=== PATIENT | male | born 2005 | race Caucasian/White ===

== ENCOUNTER 2025-03-04 13:38 | Emergency (ER) | payer OTHER, SELFPAY ==
--- OUTSIDE RECORDS SUMMARY | 2025-03-04 13:40 | XMS_ITS | Clinical Summary ---
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 Gender Identity Not on file Sexual Orientation Not on file Plan of Treatment Health Maintenance Due Date Last Done Comments Hepatitis C Virus (HCV) Screening 2003 Human Papillomavirus (HPV) Immunization (1 - Male 3-dose series) 12/18/2018 Meningococcal B Immunization (1 of 2 - Standard) 2019 Influenza Immunization (#1) 06/11/202407/13, 07/28/2018, 08/05/2017, Additional history exists SARS-COV-2 Immunization ( season) 2024 10/15/2021, 02/01/2021, 01/06/2021 Respiratory Syncytial Virus (RSV) Immunization (Adult) (1 - 1-dose 75+ series) 12/18/2078 Hepatitis B Immunization Completed 004, 06/27/2004, 04/25/2004, Additional history exists Pneumococcal Immunization Combined Aged Out 08/03/2005, 06/27/2004, 04/25/2004, Additional history exists No longer eligible based on patient's age to complete this topic Hepatitis A Immunization Discontinued 008, 04/04/2008, 02/09/2006 Measles Mumps Rubella (MMR) Immunization Discontinued 03/29/2009, 03/13/2005 Polio (IPV) Immunization Discontinued 009, 03/29/2009, 04/04/2008, Additional history exists Varicella Immunization Discontinued 03/29/2009, 2004 DTaP/Tdap/Td Immunization Discontinued 2014, 03/29/2009, 08/03/2005, Additional history exists Meningococcal Immunization (ACWY) Aged Out 05/09/2015 No longer eligible based on patient's age to complete this topic TdaP Immunization Completed 05/09/2015 Rotavirus Immunization Aged Out No lo nger eligible based on patient's age to complete this topic
[2025-03-04 13:46] VITALS: BP 119/64; PULSE 108; RESP 18; TEMP 37.4; O2SAT 97
--- NOTE | 2025-03-04 13:57 | ED_ITS ---
HPI - General Adult General Chief complaint: Upper Respiratory Infection Stated complaint: cough/sob/sore throat History of Present Illness HPI narrative: Cezar Silver is a 19-year-old male who presents today with complaints of having a cough, congestion and sore throat this has been going on for more 3-4 days. He states that he took Mucinex and Tylenol today for his symptoms. He denies any known fevers. He states it is painful to swallow Related Data Home Medications ?Medication ?Instructions ?Recorded ?Confirmed ?Last Taken ?Type methylphenidate HCl 5 mg/mL (25 10 mg PO DAILY 08/18/19 08/18/19 Unknown History mg/5 mL) oral susp,extended release 24 hr (Quillivant XR) estradiol 0.1 mg/24 hr semiweekly 03/04/25 Unknown History transdermal patch spironolactone 50 mg tablet mg 03/04/25 Unknown History Allergies Allergy/AdvReac Type Severity Reaction Status Date / Time No Known Allergies Allergy Verified 03/04/25 13:47 Review of Systems Review of Systems: All systems reviewed & are unremarkable except as noted in HPI and below Exam Narrative: GENERAL: Well-appearing, well-nourished, and in no acute distress. HEAD: Normocephalic, atraumatic. EYES: PERRLA and EOMI. ENT: Nares clear, no rhinorrhea or epistaxis. Mucous membranes moist. Oropharynx without tonsillar hypertrophy exudate or other lesions. +post nasal drip present in the back of his throat. Bilateral TMs pearly beatty nonbulging NECK: Supple. No adenopathy or masses. CHEST: Clear to auscultation. No respiratory distress. No wheezes rales or rhonchi HEART: Regular rate and rhythm. No murmur heard. Normal peripheral pulses.. EXTREMITIES: Normal range of motion. No edema. SKIN: Warm, dry, no rash. NEURO: No focal deficits. Alert and oriented x3. PSYCH: Normal mood and affect. Course Course Level of Care: Express Care Visit Vital Signs Vital signs: Vital Signs Temperature 37.4 C 03/04/25 13:46 Pulse Rate 108 H 03/04/25 13:46 Respiratory Rate 18 03/04/25 13:46 Blood Pressure 119/64 03/04/25 13:46 Pulse Oximetry 97 03/04/25 13:46 Oxygen Delivery Room Air 03/04/25 13:46 Temperature 37.4 C 03/04/25 13:46 Pulse Rate 108 H 03/04/25 13:46 Respiratory Rate 18 03/04/25 13:46 Blood Pressure 119/64 03/04/25 13:46 Pulse Oximetry 97 03/04/25 13:46 Oxygen Delivery Room Air 03/04/25 13:46 Medical Decision Making MDM Narrative Medical decision making narrative: This 19 year old patient presents with symptoms most suggestive of viral upper r espiratory tract infection. Lungs are clear bilaterally without any respiratory distress or accessory muscle use. 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 Return precautions were provided. Procedures: Pulse oximetry interpretation - not hypoxic. Review of medical records. DISPOSITION: Discharged home in stable condition. IMPRESSION: Acute upper respiratory tract infection, likely viral Medical Records Medical records reviewed: Yes I reviewed the external patient's medical records. Vital Signs Vital Signs: Vital Signs Temperature 37.4 C 03/04/25 13:46 Pulse Rate 108 H 03/04/25 13:46 Respiratory Rate 18 03/04/25 13:46 Blood Pressure 119/64 03/04/25 13:46 Pulse Oximetry 97 03/04/25 13:46 Oxygen Delivery Room Air 03/04/25 13:46 Temperature 37.4 C 03/04/25 13:46 Pulse Rate 108 H 03/04/25 13:46 Respiratory Rate 18 03/04/25 13:46 Blood Pressure 119/64 03/04/25 13:46 Pulse Oximetry 97 03/04/25 13:46 Oxygen Delivery Room Air 03/04/25 13:46 vitals reviewed Lab Data Lab results reviewed: Yes I reviewed the patient's lab results. Labs: Lab Results 03/04/25 Range/Units 14:05 POC Grp A Strep Screen Negative (Negative) Discharge Plan Discharge Clinical Impression: Upper respiratory infection Qualifiers: URI type: unspecified viral URI Qualified Code(s): J06.9 - Acute upper respiratory infection, unspecified Patient Disposition: Home Condition: Stable Instructions: Antibiotic Form, Upper Respiratory Infection (ED) Additional Instructions: Continue to take the Mucinex and zyrtec to help your symptoms Continue to take Tylenol and Motrin for body aches and fever You may try to get the over the counter lozenges to help your sore throat your strep test here was negative, however a culture was sent- if it comes back positive you will be notified Push hydration, staying hydrated wtih water and Gatorade Get plenty of rest Follow up with your PCP in 1 week to ensure you are improving IF you develop any worsening symptoms or have any other concerns the proceed to the ER Patient Language: Kazakh Prescriptions: No Action Quillivant XR 5 mg/mL (25 mg/5 mL) Suspension,Ext Rel 24hr,Recon 10 mg PO DAILY estradiol 0.1 mg/24 hr patch semiweekly spironolactone 50 mg tablet Follow-up/Referrals: Lamonte,MD Margarette [Primary Care Provider] - 1 Week Stand Alone Forms: Work/School Release IP Time of Disposition: 14:22
[2025-03-04] MEDS: IBUPROFEN 400 MG TABLET PO (14:03)
[2025-03-04 14:06] LABS: EDSTREPNEGPOS1 Negative (Negative)
[2025-03-04 14:22] LABS: EDCOVIDSCREEN Negative (Negative); EDINFLUASCREEN Negative (Negative); EDINFLUBSCREEN Negative (Negative)
== END 2025-03-04 14:26 | disposition home or self-care (01) ==
PROVIDERS: Emergency Provider Nurse Practitioner Family; PCP Pediatrics
DX: J06.9 Acute upper respiratory infection, unspecified (principal); Z20.822 Contact with and (suspected) exposure to COVID-19
CPT/HCPCS: 87081; 87426; 87804; 87880; 99213; A9270; G0463

== ENCOUNTER 2025-08-04 19:00 | Emergency (ER) | payer OTHER, SELFPAY ==
--- OUTSIDE RECORDS SUMMARY | 2025-08-04 19:02 | XMS_ITS | Clinical Summary ---
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
--- OUTSIDE RECORDS SUMMARY | 2025-08-04 19:02 | XMS_ITS | Clinical Summary ---
Author Organization [facility] Address [address] [place] [address] Care Team Providers Care Product Ambassador Name Role Phone Unavailable Primary Care Provider Unavailabl e Source Comments [facility],non-owned Affiliates and Associated Physician Practices is amultiple site organization consisting of ambulatory clinics and hospital sitesin [place], [place], [place] and [place]. This disclosure is being madepursuant to the Care Everywhere program and may not contain all information available regarding this patient. Last updated 18.[facility] Allergies No known active allergies Medications * Be aware that medications may not be up to date on this document. Alwaysverify current medications with the patient. cetirizine (ZYRTEC) 5 MG/5ML syrup Take 5 mL by mouth at bedtime. Active Melatonin 5 MG CHEW Take 5 mg by mouth once daily Active methylphenidate XR (QUILLIVANT XR) 25 MG/5ML suspensionIndicati ons:Attention deficit hyperactivity disorder (ADHD), unspecified ADHD type Take 12 mL by mouth once daily Please divide into two 180 ml bottles 360 mL 0 Active Active Problems Problem Noted Date Diagnosed Date Allergic rhinitis 01/18/2018 Overview (01/18/2018): 01/18/18 Zyrtec Well child visit 05/09/2015 Overview (01/18/2018): 9 yo 05/09/15 10 yo 07/09/16 11 yo No WCC 12 yo 01/18/18 ADD (attention deficit disorder) 05/09/2012 Overview (08/15/2019): 05/09/12 Adderall XR 5 mg, RTC 1 mo 06/07/12 Adderall XR 10 mg 06/21/12 Concerta 18 mg, RTC 1 mo 08/09/12 Concerta 18 mg, RTC 6 mo 12/12/12 Concerta 27 mg, RTC 1 mo (telephone increase) 02/08/13 Focalin XR 15 mg (telephone increase) 03/15/13 Concerta 27 mg 08/11/13 Concerta 36 mg (telephone increase) , RTC 1-2 mos 10/02/13 Vyvanse 20 mg, RTC 1-2 mos 11/14/13 Vyvanse 30 mg (telephone increase) - never filled 11/21/13 Daytrana 10 mg (ineffective) 12/14/13 Daytrana 20 mg (adverse reaction) 12/18/13 Metadate CD 10 mg 12/28/13 Metadate CD 20 mg, RTC 1 mo 02/05/14 Metadate CD 30 mg, RTC 1 mo Strattera 05/09/15 Quillivant XR 50 mg q am (Dr. Kenney) 07/09/17 Quillivant XR 50 mg q am, RTC 6 mos 01/04/17 Quillivant XR 60 mg q am, BP/wt check in 1 mo, RTC 3 mo 04/08/17 Quillivant XR 45 mg q am, RTC 6 mos 12/17/17 Quillichew XR 40 mg q am (liquid form on backorder, will not be available for months at least) 01/18/18 Quillichew XR 40 mg q am, RTC 6 mos 08/10/19 Quillivant suspension 60 mg po q am, RTC 6 mos Resolved Problems Problem Noted Date Diagnosed Date Resolved Date Acute sinusitis 04/20/2014 02/20/2015 Overview (04/22/2014): 04/20/14 ceftin Warts 02/05/2014 04/07/2017 Anxiety 03/15/2013 04/08/2017 Overview (03/20/2013): 03/17/13 Referred to psych Headache 09/25/2011 04/07/2017 Overview (08/18/2015): 09/25/11 Periactin 4 mg bid Abdominal pain 04/15/2010 04/07/2017 Fracture, femur, distal 01/12/201003/12 Overview (01/14/2010): [facility] - non-angulated transverse fracture of distal right femoral mataphysis, seeing [facility] 01/17/10 Otitis media, acute 10/08/2009 04/07/20 17 Overview (10/14/2009): 10/08/09 Bilateral (Zithromax) Closed head injury 10/08/2009 7 Immunizations Immunization Administration Dates Next Due INFLUENZA VACCINE, TRIV. (AF LURIA, FLUZONE TRIVALENT; 6MO+) (IIV3) 08/23/2009 DTAP/HEP B/IPV 06/27/2004,04/25/2004,02/18/2004 DTaP VACCINE IM (6wk-6yrs) 08/03/2005 HEP A PEDS 2 DOSE 04/04/2008,02/09/2006 HEP B VACCINE, PED/ADOL 06/27/2004,04/25,02/18/2004,12/18 HIB BOOSTER 06/27/2004,04/25/2004,02/18/2004 INFLUENZA A [id number] VACCINE 11/01/2009, 9 INFLUENZA VACCINE 09/29/2008, 7,09/27/2006,08/03,08/15/2004 INFLUENZA VACCINE, QUADR. (A FLURIA, FLUZONE QUADRIVALENT; 6MO+) (IIV4) 08/05/2017 INFLUENZA VACCINE, QUADR. (F LUZONE; FLULAVAL; FLUARIX; AFLURIA QUADRIVALENT; 6MO+), 0.5 ML (IIV4) 08/10/2019,07/28/2018,07/09/2016 Influenza Nasal 08/09/2012,09/18/2011 REYMUNDO VACCINE QUAD LAIV4 PF NASAL 07/23/2014,2012 MENINGOCOCCAL ACWY (MCV4P) VAC IM 05/09/2015 MMR 03/29/2009,03/13/2005 PNEUMOCOCCAL CONJ, PEDS 08/03/2005,06/27,04/25/2004,02/17 POLIO IPV 03/29/2009, 8,06/27/2004,04/25,02/18/2004 PPD 04/04/2008 TDAP (7yrs+) 05/09/2015 VARICELLA 03/29/2009,03/13/2005 Family History Medical History Relation Name Comments Hypercholesterolemia Father Other Paternal Grandmother Relation Name Status Comments Father Paternal Grandmother Social History Tobacco Use Types Packs/Day Years Used Date Smoking Tobacco: Never Smokeless Tobacco: Never Alcohol Use Standard Drinks/Week Comments No 0 (1 standard drink = 0.6 oz pur e alcohol) Sex and Gender Information Value Date Recorded Sex Assigned at Not on file 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 Gender Identity Not on file Sexual Orientation Not on file Last Filed Vital Signs Vital Sign Reading Time Taken Comments Blood Pressure 102/68 08/10/2019 4:44 PM CDT Pulse 82 06/24/2018 1:35 PM CDT Temperature 36.4 C (97.5 F) 08/10/2019 4:44 PM CDT Respiratory Rate - - Oxygen Saturation 100% 06/24/2018 1:35 PM CDT Inhaled Oxygen Concentration - - Weight 67.8 kg (149 lb 6.4 oz) 08/10/2019 4:44 P M CDT Height 180.3 cm (5' 11) 08/10/2019 4:44 PM CDT Body Mass Index 20.84 08/10/2019 4:44 PM CDT Plan of Treatment Health Maintenance Due Date Last Done Comments HIV SCREENING 12/18/2018 HPV VACCINE (1 - Male 3-dose series) 12/18/2018 MENINGOCOCCAL (Group B) VACCINE SHARED DECISION-MAKING (1 of 2 - Standard) 2019 HEPATITIS C SCREENING 12/14/2021 DEPRESSION SCREENING 10/11/2024 DTAP/TDAP/TD VACCINES (6 - Td or Tdap) 05/09/2025 05/09/2015, 08/03/2005, 06/27/2004, Additional history exists COVID-19 VACCINE (1 - season) 2025 INFLUENZA VACCINE (#1) 2025 9, 07/28/2018, 08/05/2017, Additional history exists ZOSTER VACCINE (1 of 2) 12/18/2053 HEPATITIS B VACCINE Completed 06/27/2004, 06/27/2004, 04/25/2004, Additional history exists HIB VACCINE Aged Out 06/27/2004, 04/10, 02/18/2004 No longer eligible based on patient's age to complete this topic PNEUMOCOCCAL VACCINE Completed 08/03/2005, 06/27/2004, 04/25/2004, Additional history exists MENINGOCOCCAL GROUPS A/C/Y/W VACCINE Aged Out 05/09/2015 No longer eligible based on patient's age to complete this topic Goals Goal Patient Goal Type Associated Problems Recent Progress Patient-Stated? Author Use safety retraint in car Lifestyle On track(2018 4:44 PM CDT) No Ramonita Pickens MA Take recommended medication(s) Lifestyle On track(2018 4:44 PM CDT) No Tom Pearl MD Insurance [facility]
--- OUTSIDE RECORDS SUMMARY | 2025-08-04 19:02 | XMS_ITS | Encounter Summary ---
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 Historical Provider NURSING COMMUNICATION Fin al Result documented in this encounter Visit Diagnoses Not on filedocumented in this encounter Care Teams Lead Customer Service Representative Relationship Specialty Start Date End Date Tom Pearl MD PCP - General 02/26/19 documented as of this encounter
--- OUTSIDE RECORDS SUMMARY | 2025-08-04 19:02 | XMS_ITS | Clinical Summary ---
Author Organization [facility] Address [address] [place] [address] Care Team Providers Care Curtain Stitcher Name Role Phone Unavailable Primary Care Provider Unavailabl e Social History Tobacco Use Types Packs/Day Years Used Date Smoking Tobacco: Never Assessed Sex and Gender Information Value Date Recorded Sex Assigned at Not on file Legal Sex Male 7:05 PM CDT Gender Identity Not on file Sexual Orientation Not on file Plan of Treatment Health Maintenance Due Date Last Done Comments Annual Physical 12/18/2006 HPV Vaccines (1 - Male 3-dos e series) 12/18/2018 Meningococcal B Vaccine (1 o f 2 - Standard) 2019 Hepatitis C 12/18/2021 DTaP, Tdap and Td Vaccines ( 1 - Tdap) 12/18/2022 Hepatitis B Vaccines (1 of 3 - 19+ 3-dose series) 12/18/2022 COVID-19 Vaccine (1 - 2024-2 6 season) 2025 Influenza Adult (#1) 2025 Hepatitis A Vaccines Aged Out No long er eligible based on patient's age to complete this topic Meningococcal Vaccine Aged Out No marilin sony eligible based on patient's age to complete this topic Pneumococcal Vaccine: Pediat rics (0 to 5 Years) and At-Risk Patients (6 to 49 Years) Aged Out No longer eligible b ased on patient's age to complete this topic RSV Immunizations Under 20 Months Aged Out No longer eligible based on patient's age to complete this topic
--- OUTSIDE RECORDS SUMMARY | 2025-08-04 19:02 | XMS_ITS | Clinical Summary ---
Author Organization [place] [id number] [facility] Address [address] [place] [address] Care Team Providers Care Animation Camera Operator Name Role Phone Tom Pearl MD Primary Care Provider Allergies No known active allergies Medications estradioL (VIVELLE-DOT) 0.1 mg/24 hr APPLY 1 PATCH TOPICALLY TO THE SKIN 2 TIMES A WEEK. REPLACE PATCH EVERY 3-4 DAYS 5 Active spironolactone (ALDACTONE) 50 mg tablet 5 Active cetirizine (ZyrTEC) 1 mg/mL syrup Take 5 mL (5 mg total) by mouth nightly Active melatonin 5 mg tablet,chewable Take 5 mg by mouth daily Active methylphenidate HCl (QUILLIVANT XR ORAL) Take 60 mg by mouth daily 0 Active meloxicam (MOBIC) 15 mg tablet Take 1 tablet (15 mg total) by mouth daily Take 1 daily with food 30 tablet 5 Active Active Problems Problem Noted Date Diagnosed Date Allergic rhinitis 01/18/2018 Overview (04/24/2025): 01/18/18 Zyrtec Chronic otitis media with effusion, right 2016 ADD (attention deficit disorder) 05/09/2012 Overview (04/24/2025): 05/09/12 Adderall XR 5 mg, RTC 1 [...] mg po q am, RTC 6 mos Surgical History Surgery Date Site/Laterality Comments TYMPANOSTOMY TUBE PLACEMENT 01/09/2005 - 02/07/2005 Medical History Medical History Date Comments ADHD (attention deficit hyperactivity disorder) Family History Medical History Relation Name Comments Arthritis Mother Relation Name Status Comments Mother Social History Tobacco Use Types Packs/Day Years Used Date Smoking Tobacco: Never Tobacco Cessation:Counseling Given: Not Answered Sex and Gender Information Value Date Recorded Sex Assigned at Not on file 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 Gender Identity Not on file Sexual Orientation Not on file Obstetrics History Last Filed Vital Signs Vital Sign Reading Time Taken Comments Blood Pressure 119/70 10/31/2019 11:05 AM SENIOR COST ANALYST Pulse 69 10/31/2019 11:05 AM SENIOR COST ANALYST Temperature 36.4 C (97.6 F) 10/31/2019 11:05 AM SENIOR COST ANALYST Respiratory Rate - - Oxygen Saturation 97% 10/31/2019 11:05 AM SENIOR COST ANALYST Inhaled Oxygen Concentration - - Weight 90.7 kg (200 lb) 04/24/2025 1:22 PM CDT Height 185.4 cm (6' 1) 04/24/2025 1:22 PM CDT Body Mass Index 26.39 04/24/2025 1:22 PM CDT Plan of Treatment Health Maintenance Due Date Last Done Comments Depression Screening 2003 Hepatitis C Screening 2003 HPV Vaccines (1 - Male 3-dose series) 12/18/2018 Meningococcal B Vaccine (1 of 2 - Standard) 2019 Regular Well Visit/Exam 18-64 12/18/2021 DTaP/Tdap/Td Vaccine (7 - Td or Tdap) 05/09/2025 05/09/2015, 03/29/2009, 08/03/2005, Additional history exists Influenza Vaccine (#1) 2025 , 07/18/2022, 08/10/2019, Additional history exists Hepatitis B Screening Completed 06/27/2004 , 06/27/2004, 04/25/2004, Additional history exists Pneumococcal vaccine <65 Completed 005, 06/27/2004, 04/25/2004, Additional history exists Varicella Vaccines Completed 03/29/2009, 03/13/2005 Meningococcal Vaccine Aged Out 05/09/2015 No marilin sony eligible based on patient's age to complete this topic Covid-19 Vaccine Completed 10/06/2024, 05/2022, 10/15/2021, Additional history exists [facility] Care Teams Animation Camera Operator Relationship Specialty Start Date End Date Tom Pearl MD PCP - General 02/26/19
[2025-08-04 19:08] VITALS: BP 124/68; PULSE 114; RESP 18; TEMP 37.3; O2SAT 97
--- NOTE | 2025-08-04 19:15 | ED.URI ---
HPI - URI/Sore Throat General Chief Complaint: Upper Respiratory Infection Stated Complaint: fever patient presents to the [facility] with complaints of headache, fever, chills, body aches, nausea, and fatigue that began about 3 days ago. Patient also reports minimal cough and sore throat. Patient reports taking Tylenol, ibuprofen, and NyQuil. No known sick contacts. Denies shortness of breath, wheezing, ear pain, difficulty swallowing, dizziness, abdominal pain, diarrhea. Related Data Home Medications ?Medication ?Instructions ?Recorded ?Confirmed ?Last Taken ?Type methylphenidate HCl 5 mg/mL (25 10 mg PO DAILY 08/18/19 08/18/19 Unknown History mg/5 mL) oral susp,extended release 24 hr (Quillivant XR) estradiol 0.1 mg/24 hr semiweekly 03/04/25 Unknown History transdermal patch spironolactone 50 mg tablet mg 03/04/25 Unknown History Allergies Allergy/AdvReac Type Severity Reaction Status Date / Time No Known Allergies Allergy Verified 08/04/25 19:08 Review of Systems Constitutional: Constitutional: Reports as per HPI, Reports chills, Reports fatigue and Reports fever(s) Eyes: Eyes: Reports no additional eye complaints ENT: Reports as per HPI, Denies vertigo, Denies dizziness, Denies nasal congestion and Reports sore throat Cardiovascular: Cardiovascular: Reports no additional cardiovascular complaints Respiratory: Respiratory: Reports as per HPI, Denies chest congestion, Reports cough, Denies dyspnea and Denies wheezing Gastrointestinal: Gastrointestinal: Reports as per HPI, Denies abdominal pain, Denies diarrhea, Reports nausea and Denies vomiting Genitourinary: Genitourinary: Reports no additional male genitourinary complaints Musculoskeletal: Musculoskeletal: Reports as per HPI, Denies back pain and Denies myalgias Integumentary/Breasts: Skin/Breast: Reports as per HPI and Denies rash Neurologic: Reports as per HPI, Denies vertigo, Denies dizziness, Reports headache(s) and Denies weakness Psychiatric: Psychiatric: Reports no additional psychiatric complaints Endocrine: Endocrine: Reports no additional endocrine complaints Hematologic/Lymphatic: Hematologic/Lymphatic: Reports no additional hematologic/lymphatic complaints Allergic/Immunologic: Allergic/Immunologic: Reports no additional allergic/immunologic complaints Exam Const: General: healthy appearing and no acute distress Nutritional Appearance: well nourished Orientation/consciousness: patient oriented x3 Limitations: no limitations HENMT: Head: normal to inspection Ears: external ears normal and TM's normal bilaterally Face/Nose/Sinus: Normal external nose present and Normal nares present Face and sinus: normal facial exam and sinuses nontender Mouth: Yes Normal oral and palatal mucosa present, Yes lip normal and Yes moist mucous membranes Throat: posterior oropharynx abnormal ( Minimal erythema with minimal edema, no exudate) Neck: Neck: normal visual inspection and no lymphadenopathy Resp: Effort & Inspection: normal respiratory effort Auscultation: clear to auscultation bilaterally Cardio: Rate: tachycardic Rhythm: regular rhythm Skin: General skin exam: normal color Rashes: no rashes Wounds: no wounds Neuro: General: patient oriented x3 and moves all extremities Speech: normal speech Gait exam (Neuro): Normal gait present Psych: Mental Status: mental status grossly normal Affect: normal affect Attitude: cooperative Course Course Level of Care: Express Care Visit Vital Signs Vital signs: Vital Signs Temperature 99.1 F 08/04/25 19:08 Pulse Rate 114 H 08/04/25 19:08 Respiratory Rate 18 08/04/25 19:08 Blood Pressure 124/68 08/04/25 19:08 Pulse Oximetry 97 08/04/25 19:08 Oxygen Delivery Room Air 08/04/25 19:08 Temperature 99.1 F 08/04/25 19:08 Pulse Rate 114 H 08/04/25 19:08 Respiratory Rate 18 08/04/25 19:08 Blood Pressure 124/68 08/04/25 19:08 Pulse Oximetry 97 08/04/25 19:08 Oxygen Delivery Room Air 08/04/25 19:08 MDM - URI/Sore Throat MDM Narrative Medical decision making narrative: strep, flu, COVID testing completed in Express Care The patient was evaluated by myself in the [facility] care. History is obtained from patient who is an independent historian and physical exam was performed. Available medical records were reviewed at this time. Exam findings show no acute concerns or changes; patient is non-toxic appearing and is in no distress. Patient is appropriate for outpatient treatment and follow-up. I have evaluated and discussed social determinants of health with the patient that could potentially impact subsequent diagnosis and treatment plans. Differential diagnosis and treatment plan were discussed with the patient. Patient agrees with discussion and after shared medical decision making agrees with plan of care. All questions were answered to the patient's satisfaction. Differential Diagnosis Differential diagnosis: Likely upper respiratory infection, croup, otitis media, sinusitis, viral infection, bronchitis, influenza and pharyngitis Medical Records Attestation: I reviewed the patient's medical records. Lab Data Attestation: I reviewed the patient's lab results. Labs: Lab Results 08/04/25 08/04/25 Range/Units 19:23 19:30 POC Influenza A Ag Pending POC Influenza B Ag Pending POC SARS CoV-2 Ag Pending POC Grp A Strep Screen Negative (Negative) Discharge Plan Discharge Clinical Impression: Fever, Nausea, Viral illness Patient Disposition: Home Condition: Stable Instructions: Antibiotic Form, Fever in Adults (ED), Viral Syndrome (ED) Additional Instructions: Viral illness may last between 7-12days; antibiotic is NOT recommended at this time. Recommend antihistamine such as Benadryl at night time and Claritin/Zyrtec/Belgica during the day. Also using steroid nasal spray like Flonase can help with symptoms and congestion. Using sudafed for significant congestion will also give some relief. Cough syrup may cause drowsiness; avoid driving or take it at night time. Use inhaler as needed for cough, wheezing, shortness of breath or chest tightness. Also, recommend symptomatic treatment includes: rest, fluids, increase humidity of the air at home. Recommend Acetaminophen or nonsteroidal anti-inflammatory agents(NSAIDs) as directed in the bottle to reduce fever and/pain/headache. Avoid smoking/second-hand smoke. Limit visits to areas with large crowds. Frequent hand washing or hand designer is one of the best ways to prevent spread of infection. Please schedule a followup visit with your personal physician for further evaluation and treatment within 3-5days. Including recheck and discussion of your blood pressure. If your symptoms persist, change or worsen significantly before you can contact your personal physician then please, without delay, go to the emergency department for further evaluation. Patient Language: Sammarinese Prescriptions: New ondansetron 4 mg tablet,disintegrating 4 mg PO Q8H PRN (Reason: nausea and vomiting) Qty: 20 0RF No Action Quillivant XR 5 mg/mL (25 mg/5 mL) Suspension,Ext Rel 24hr,Recon 10 mg PO DAILY estradiol 0.1 mg/24 hr patch semiweekly spironolactone 50 mg tablet Follow-up/Referrals: Lamonte,MD Margarette [Primary Care Provider, Unknown] Time of Disposition: 19:34
[2025-08-04 19:25] LABS: EDSTREPNEGPOS1 Negative (Negative)
[2025-08-04 19:32] LABS: EDCOVIDSCREEN Negative (Negative); EDINFLUASCREEN Negative (Negative); EDINFLUBSCREEN Negative (Negative)
[2025-08-04] MEDS: ONDANSETRON HCL ODT 4 MG TABLET PO (19:34)
== END 2025-08-04 19:38 | disposition home or self-care (01) ==
PROVIDERS: Emergency Provider Nurse Practitioner Family; PCP Pediatrics
DX: R11.0 Nausea (principal); B34.9 Viral infection, unspecified; Z20.822 Contact with and (suspected) exposure to COVID-19
CPT/HCPCS: 87081; 87426; 87804; 87880; 99213; A9270; G0463

== ENCOUNTER 2025-08-10 08:18 | Emergency (ER) | payer OTHER, SELFPAY ==
--- OUTSIDE RECORDS SUMMARY | 2025-08-10 08:28 | XMS_ITS | Clinical Summary ---
Author Organization [facility] Address [address] [place] [id number] Care Team Providers Care Telegraph Service Clerk Name Role Phone Unavailable Primary Care Provider [...]
--- OUTSIDE RECORDS SUMMARY | 2025-08-10 08:29 | XMS_ITS | Clinical Summary ---
Author Organization [place] [id number] Address [address] [place] [address] Care Team Providers Care Rental Agent Name Role Phone Tom Pearl MD Primary [...] mg po q am, RTC 6 mos Encounters Date Type Department Care Team Description 08/06/2025 11:45 PM CDT - 08/07/2025 5:33 AM CDT Emergency [facility] Emergency Department [address] [place] [address] Jacklyn Tesfaye MD Nausea and vomiting, unspecified vomiting type (Primary Dx); Abnormal LFTs; Acute nonintractable headache, unspecified headache type Discharge Disposition: Discharge to home or self care from Last 3 Months Surgical History Surgery Date Site/Laterality Comments TYMPANOSTOMY TUBE PLACEMENT 01/09/2005 - 02/07/2005 Medical History Medical History Date Comments ADHD (attention deficit hyperactivity disorder) Family History Medical History Relation Name Comments Arthritis Mother Relation Name Status Comments Mother Social History Tobacco Use Types Packs/Day Years Used Date Smoking Tobacco: Never Tobacco Cessation:Counseling Given: Not Answered Personal Safety Answer Date Recorded Have you ever been in or are you currently in a harmful physical or emotional relationship or is someone making you feel afraid or unsafe? 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 Gender Identity Not on file Sexual Orientation Not on file Obstetrics History Last Filed Vital Signs Vital Sign Reading Time Taken Comments Blood Pressure 120/81 08/07/2025 4:00 AM CDT Pulse 76 08/07/2025 4:15 AM CDT Temperature 37.2 C (99 F) 08/06/2025 9:40 PM CDT Respiratory Rate 22 08/07/2025 4:15 AM CDT Oxygen Saturation 98% 08/07/2025 4:15 AM CDT Inhaled Oxygen Concentration - - Weight 88.8 kg (195 lb 12.3 oz) 08/06/2025 9:40 PM CDT Height 185.4 cm (6' 1) 04/24/2025 1:22 PM CDT Body Mass Index 25.83 04/24/2025 1:22 PM CDT Plan of Treatment Health Maintenance Due Date Last Done Comments Depression Screening 2003 HPV Vaccines (1 - Male [...] Completed 10/06/2024, 05/2022, 10/15/2021, Additional history exists Hepatitis C Screening Completed 08/07/2025 Procedures Procedure Name Priority Date/Time Associated Diagnosis Comments CT ABDOMEN PELVIS W CONTRAST ED 08/07/2025 2:48 AM CDT MONONUCLEOSIS SCREEN STAT 08/07/2025 2:30 AM CDT SEPSIS LACTATE WITH REFLEX STAT 08/07/2025 2:30 AM CDT HEPATITIS PANEL, ACUTE STAT 2:30 AM CDT INFLUENZA A/B, RSV, AND COVID-19 PCR STAT 08/07/2025 2:30 AM CDT URINALYSIS, MICROSCOPIC ONLY STAT 08/06/2025 10:09 PM CDT URINALYSIS AND REFLEX TO MICROSCOPIC AND CULTURE STAT 08/06/2025 10:09 PM CDT CREATINE KINASE (CK), TOTAL STAT 08/06/2025 9:45 PM CDT EGFR STAT 08/06/2025 9:45 PM CDT DIFFERENTIAL AUTO STAT 08/06/2025 9:4 5 PM CDT LIPASE STAT 08/06/2025 9:45 PM CDT COMPREHENSIVE METABOLIC PANEL STAT 08/06/2025 9:45 PM CDT CBC WITH AUTO DIFFERENTIAL STAT 08/06/2025 9:45 PM CDT from Last 3 Months Results * CT Abdomen Pelvis W Contrast (08/07/2025 2:48 AM CDT) Anatomical Region Laterality Modality Body N/A Computed Tomogra phy 08/07/2025 2:56 AM CDT Impressions 08/07/2025 2:56 AM CDT No acute abnormality identified. Moderate hepatic steatosis and other chronic findings as above. Electronically signed by: Ian Hanley M.D. Narrative 08/07/2025 2:56 AM CDT EXAMINATION: CT ABDOMEN PELVIS W CONTRAST ORDERING HEALTHCARE PROVIDER: JACKLYN TESFAYE HISTORY: Abnormal LFTs. TECHNIQUE: CT abdomen and pelvis with contrast . Reconstructed coronal and sagittal MPR images reviewed. All images stored on PACS. Automated exposure control was used as a dose optimization technique for this examination. COMPARISON: None FINDINGS: Lung bases clear. Heart size normal. No effusion. Moderate hepatic steatosis. Gallbladder contracted. Spleen, pancreas, adrenal glands unremarkable. Kidneys, ureters, bladder appear normal. Stomach and small bowel appear normal. Noninflamed colonic diverticula. Normal appendix. Major vascular structures are patent and normal in caliber. No enlarged lymph nodes or free fluid is seen. Nondisplaced L5 pars defects. Osseous structures otherwise unremarkable. Moderate gynecomastia. Procedure Note Ian Hanley MD - 08/07/2025 EXAMINATION: CT ABDOMEN PELVIS W CONTRAST ORDERING HEALTHCARE PROVIDER: JACKLYN TESFAYE HISTORY: Abnormal LFTs. TECHNIQUE: CT abdomen and pelvis with contrast . Reconstructed coronal and sagittal MPR images reviewed. All images stored on PACS. Automated exposure control was used as a dose optimization technique for this examination. COMPARISON: None FINDINGS: Lung bases clear. Heart size normal. No effusion. Moderate hepatic steatosis. Gallbladder contracted. Spleen, pancreas, adrenal glands unremarkable. Kidneys, ureters, bladder appear normal. Stomach and small bowel appear normal. Noninflamed colonic diverticula. Normal appendix. Major vascular structures are patent and normal in caliber. No enlarged lymph nodes or free fluid is seen. Nondisplaced L5 pars defects. Osseous structures otherwise unremarkable. Moderate gynecomastia. IMPRESSION: No acute abnormality identified. Moderate hepatic steatosis and other chronic findings as above. Electronically signed by: Ian Hanley M.D. Jacklyn Tesfaye MD IM CT PROCEDURES Final Result * Influenza A/B, RSV, and COVID-19 PCR Nasopharyngeal (08/07/2025 2:30 AM CDT) COVID-19 RNA Negative Negative Comment:Testing performed by : [address] [address] Influenza A RNA Negative Negative TIERA Comment:Testing performed by : [address] [address] Influenza B RNA Negative Negative [facility]A Comment:Testing performed by : [address] [facility] Comment: Interpretive data: Testing performed by [facility]. This test is performed using the [employer] Xpert Xpress CoV-2/Flu/RSV plus assay. This is a multiplex, real-time reverse transcriptase PCR assay intended for the qualitative detection of nucleic acid from SARS-CoV-2, influenza A, influenza B, and respiratory syncytial virus. This assay has been cleared by the [place] Food and Drug administration. The performance characteristics have been verified by the [facility]. Results must be considered in the clinical context, and a negative result does not rule out infection. Interpretive Data last revised 2023 Testing performed by: [address] [address] Nasopharyngeal 08/07/2025 2: 30 AM CDT 08/07/2025 2:35 AM CDT Narrative TIERA - 08/07/2025 3:29 AM CDT Is the Patient experiencing symptoms consistent with COVID?->Unknown us Jacklyn Tesfaye MD LAB MICROBIOLOGY - GENER AL ORDERABLES Final Result [facility] [address] [facility] Department [place] [address] * Sepsis Lactate w/ Reflex (08/07/2025 2:30 AM CDT) Sepsis Lactate 0.9 0.7 - 2.0 mmol/L Comment:Testing performed by : [address] [address] Blood 08/07/2025 2:30 AM CDT 08/07/2025 2:34 AM CDT Jacklyn Tesfaye MD LAB BLOOD ORDERABLES Fin al Result Performing Organization Address City/[facility]/ZIP Co de Phone Number TIERA [facility] [place] [address] * Hepatitis panel, acute Blood (08/07/2025 2:30 AM CDT) Hep A IgM Nonreactive Nonreactive Comment: Interpretive Data: If Hep A IgM Ab is reported as Equivocal, a new sample should be drawn in two weeks for testing. Current interpretive data was last revised on 19. Hep B core IgM Nonreactive Nonreactive [facility] Comment: Interpretive Data If HepB Core IgM Ab is reported as Equivocal, a new sample should be drawn in two weeks for testing. Current interpretive data was last revised on 19. Hep C Ab Nonreactive Nonreactive [facility] Comment: Antibodies to HCV not detected. Does NOT exclude the possibility of recent exposure to HCV. Current interpretive data was last revised on 22 Interpretive Data Nonreactive: Antibodies to HCV not detected. Does NOT exclude the possibility of recent exposure to HCV. Equivocal: Equivocal for HCV antibodies. Supplemental molecular testing will be automatically performed to determine infection status in accordance with current CDC screening recommendations. Reactive: Positive for HCV antibodies. This may represent current or past HCV infection. Supplemental molecular testing will be automatically performed to determine current infection status in accordance with current CDC screening recommendations. Interpretive data was last revised on 2019. HepBsAg Nonreactive Nonreactive [facility] Blood 08/07/2025 2:30 AM CDT 08/07/2025 4:22 AM CDT Jacklyn Tesfaye MD LAB MICROBIOLOGY - GENER AL ORDERABLES Final Result Performing Organization Address City/[facility] Co de Phone Number TIERA [address] [facility] [place] [address] * Mononucleosis screen (08/07/2025 2:30 AM CDT) [place] Screen Negative Negative Comment: Interpretive Data Heterophile antibodies are short-lived. Therefore, a positive test is consistent with recent infection. Heterophile antibodies fail to develop in approximately 15% of adults and in a higher percentage of children. Chip-Martinez virus specific serology (IgG and IgM) testing should be performed to exclude disease in patients with a negative antibody test. Current interpretive data was last revised on 2023. Testing performed by: [address] [address] Blood 08/07/2025 2:30 AM CDT 08/07/2025 2:34 AM CDT us Jacklyn Tesfaye MD LAB BLOOD ORDERABLES Fin al Result [facility] [address] [facility] Department [place] [address] * (ABNORMAL) Urinalysis reflex to microscopic and culture Urine (08/06/2025 10:09 PM CDT) Color, ur Yellow Yellow Comment:Testing performed by : [address] [address] Clarity, ur Cloudy(A) Clear TIERA Comment:Testing performed by : [address] [address] Specific gravity, ur 1.029 1.003 - 1.030 [facility]A Comment:Testing performed by : [address] [address] pH, urine 6.5 [facility]A Comment: Interpretive Data U rine pH is affected by diet, medications, systemic acid-base disturbances, and renal tubular function. pH may affect urinary stone formation. For example, urine pH below 6.0 may help reduce the tendency for calcium phosphate stones and pH greater than 6.0 may reduce the tendency for uric acid stone formation. Source: [employer] Current Interpretive Data was last revised on 2017 Testing performed by: [address] [address] Protein, ur ql 1+(A) Negative TIERA Comment:Testing performed by : [address] [address] Glucose, ur ql Negative Negative TIERA Comment:Testing performed by : [facility], [address] [place] [address], [place]., [address] Ketones, ur Trace(A) Negative TIERA RICH Comment:Testing performed by : [address], [place]., [address] Bilirubin, ur 2+(A) Negative TIERA RICH Comment:Testing performed by : [address], [place]., [address] Blood, ur Negative Negative TIERA Comment:Testing performed by : [address], [place]., [address] Urobilinogen, ur >=8.0(A) <2.0 mg/dL TIERA RICH Comment:Testing performed by : [address], [place]., [address] Nitrite, ur Negative Negative TIERA Comment:Testing performed by : [address], [place]., [address] Leukocyte esterase, ur Negative Negative TIERA Comment:Testing performed by : [address], [place]., [address] UA reflex comment Reflex to microscopic UA will be performed. TIERA Comment:Testing performed by : [address] [address] Urine 08/06/2025 10:0 9 PM CDT 08/06/2025 10:12 PM CDT us Jacklyn Tesfaye MD LAB MICROBIOLOGY - GENER AL ORDERABLES Final Result [facility] [address] [facility] Department [place] [address] * (ABNORMAL) Urinalysis, microscopic only (08/06/2025 10:09 PM CDT) WBC, ur 0-5 0 - 5 /HPF Comment:Testing performed by : [address], [place]., [address] RBC, ur 0-2 0 - 2 /HPF TIERA RICH Comment:Testing performed by : [address], [place]., [address] Epithelial cells, squamous, ur >50(A) 0 - 5 /HPF TIERA Comment:Testing performed by : [address] [address] Mucous, ur Present(A) TIERA RICH Comment:Testing performed by : [address] [address] Culture Reflex Comment Reflex conditions for urine culture (WBC >10) not met. TIERA Comment:Testing performed by : [address] [address] Urine 08/06/2025 10:0 9 PM CDT 08/06/2025 10:12 PM CDT us Jacklyn Tesfaye MD LAB URINE ORDERABLES Fin al Result TIERA [facility] Department [place] [address] * eGFR (08/06/2025 9:45 PM CDT) eGFR >90 >=60 mL/min/1. 73 m2 Comment: Interpretive Data Reference Interval Normal >/= 90 mL/min/1.73m2 Mildly decreased* 60 - 89 mL/min/1.73m2 Mildly to moderately decreased 45 - 59 mL/min/1.73m2 Moderately to severely decreased 30 - 44 mL/min/1.73m2 Severely decreased 15 - 29 mL/min/1.73m2 Kidney Failure < 15 mL/min/1.73m2 *Relative to young adult level Estimated glomerular filtration rate is determined by the 2020 CKD-EPI equation recommended by the National Kidney Foundation (A Unifying Approach to GFR Estimation: Recommendations of the NKF-ASK Task Force on Reassessing the Inclusion of Race in Diagnosing Kidney Disease, JASN 202). The CKD-EPI equation should not be used for patients with unstable renal function and has not been validated in children and those over 70. Current interpretive data was last reviewed 2021. Testing performed by: [address] [address] Blood 08/06/2025 9:45 PM CDT 08/06/2025 10:05 PM CDT us Jacklyn Tesfaye MD LAB BLOOD ORDERABLES Fin al Result [facility]ERA [address] [facility] Department [place] [address] * (ABNORMAL) Differential, auto (08/06/2025 9:45 PM CDT) Neutrophil abs 2.11 1.50 - 6.50 K/cumm Comment:Testing performed by : [address] [address] Imm gran abs 0.02 0.00 - 0.10 K/cumm TIERA Comment:Testing performed by : [address] [address] Lymphocyte abs 4.99(H) 0.80 - 3.30 K/cumm TIERA Comment:Testing performed by : [address] [address] Monocyte abs 0.37 0.20 - 0.80 K/cumm TIERA Comment:Testing performed by : [address] [address] Eosinophil abs 0.01 0.00 - 0.50 K/cumm TIERA Comment:Testing performed by : [address] [address] Basophil abs 0.10 0.00 - 0.10 K/cumm TIERA Comment:Testing performed by : [address] [address] Neutrophil pct 27.7 % TIERA Comment: Interpretive Data Percent cell count reference ranges are not reported, since discordance with absolute values may lead to misinterpretation of CBC data. Current Interpretive Data was last revised on 2018. Testing performed by: [address] [address] Imm gran pct 0.3 % TIERA Comment: Interpretive Data Percent cell count reference ranges are not reported, since discordance with absolute values may lead to misinterpretation of CBC data. Current Interpretive Data was last revised on 2018. Testing performed by: [address] [address] Lymphocyte pct 65.7 % [facility] Comment: Interpretive Data Percent cell count reference ranges are not reported, since discordance with absolute values may lead to misinterpretation of CBC data. Current Interpretive Data was last revised on 2018. Testing performed by: [address] [address] Monocyte pct 4.9 % [facility] Comment: Interpretive Data Percent cell count reference ranges are not reported, since discordance with absolute values may lead to misinterpretation of CBC data. Current Interpretive Data was last revised on 2018. Testing performed by: [address] [address] Eosinophil pct 0.1 % [facility] Comment: Interpretive Data Percent cell count reference ranges are not reported, since discordance with absolute values may lead to misinterpretation of CBC data. Current Interpretive Data was last revised on 2018. Testing performed by: [address] [address] Basophil pct 1.3 % [facility] Comment: Interpretive Data Percent cell count reference ranges are not reported, since discordance with absolute values may lead to misinterpretation of CBC data. Current Interpretive Data was last revised on 2018. Testing performed by: [address] [address] Blood 08/06/2025 9:45 PM CDT 08/06/2025 10:05 PM CDT us Jacklyn Tesfaye MD LAB BLOOD ORDERABLES Fin al Result [facility]ERA [address] [facility] Department [place] [address] * (ABNORMAL) CBC with auto differential (08/06/2025 9:45 PM CDT) WBC 7.60 3.80 - 9.90 K/cumm Comment:Testing performed by : [address] [place] [address] Hgb 12.4(L) 13.0 - 17.5 g/dL TIERA Comment:Testing performed by : [address], [address] Hct 34.8(L) 38.9 - 50.3 % TIERA MH Comment:Testing performed by : [address], [address] Plt 158 150 - 400 K/cumm TIERA Comment:Testing performed by : [address], [address] MPV 10.4 9.1 - 12.3 fL TIERA Comment:Testing performed by : [address], [address] RBC 4.32 4.30 - 5.80 M/cumm TIERA Comment:Testing performed by : [address], [address] MCV 80.6(L) 81.3 - 96.4 fL TIERA Comment:Testing performed by : [address], [address] MCH 28.7 27.1 - 33.3 pg TIERA Comment:Testing performed by : [address], [address] MCHC 35.6 32.3 - 35.7 g/dL TIERA Comment:Testing performed by : [address], [address] RDW CV 12.7 11.1 - 14.9 % TIERA Comment:Testing performed by : [address], [address] RDW SD 37.1 35.7 - 48.1 fL TIERA Comment:Testing performed by : [address], [address] NRBC abs 0.00 0.00 - 0.01 K/cumm TIERA Comment:Testing performed by : [address], [address] Morphologic Screen Results confirmed by manual morphology review. TIERA Comment:Testing performed by : [address] [address] Blood Venous blood specimen / Unknown 08/06/2025 9:45 PM CDT 08/06/2025 10:05 PM CDT Jacklyn Tesfaye MD LAB BLOOD ORDERABLES Fin al Result [address] [address] * Lipase (08/06/2025 9:45 PM CDT) Lipase 39 10 - 99 Units/L Comment:Testing performed by : [address] [address] Blood Venous blood specimen / Unknown 08/06/2025 9:45 PM CDT 08/06/2025 10:05 PM CDT Jacklyn Tesfaye MD LAB BLOOD ORDERABLES Fin al Result Performing Organization Address [facility]/ZIP Co de Phone Number [address] [place] [address] * Creatine kinase (CK), total (08/06/2025 9:45 PM CDT) CK 58 40 - 300 Units/L Comment:Testing performed by : [address] [address] Blood 08/06/2025 9:45 PM CDT 08/06/2025 10:05 PM CDT Jacklyn Tesfaye MD LAB BLOOD ORDERABLES Fin al Result [address] [address] * (ABNORMAL) Comprehensive metabolic panel (08/06/2025 9:45 PM CDT) Sodium 135 135 - 145 mmol/L Comment:Testing performed by : [address] [address] Potassium, pl 4.0 3.3 - 4.9 mmol/L TIERA Comment:Testing performed by : [address] [address] Chloride 100 97 - 110 mmol/L [facility] Comment:Testing performed by : [address], [place]., [address] CO2 23 22 - 32 mmol/L TIERA Comment:Testing performed by : [address], [place]., [address] Anion gap 12 2 - 15 mmol/L [facility] Comment:Testing performed by : [address], [place]., [address] BUN 11 6 - 25 mg/dL [facility] Comment:Testing performed by : [address], [place]., [address] Creatinine 0.81 0.80 - 1.30 mg/dL TIERA Comment:Testing performed by : [address] [address] Glucose 130 70 - 199 mg/dL [facility] Comment: Interpretive Data Fasting glucose >/= 126 mg/dl is diagnostic for diabetes. Fasting is defined as no caloric intake for at least 8 hours. Fasting glucose between 100 mg/dl to 125 mg/dl is diagnostic of prediabetes. In a patient with classic symptoms of hyperglycemia or hyperglycemic crisis, a random glucose >/= 200 mg/dl is diagnostic for diabetes. In the absence of unequivocal hyperglycemia, results should be confirmed by repeat testing. The classification and Diagnosis of Diabetes Diabetes Care 202; 46: S19-S40. Current interpretive data was last revised 2022. Testing performed by: [address] [address] Calcium 9.2 8.5 - 10.3 mg/dL TIERA Comment:Testing performed by : [address] [address] Bilirubin, total 3.0(H) 0.1 - 1.2 mg/dL [facility] Comment:Testing performed by : [address] [address] Protein, pl 7.2 6.5 - 8.5 g/dL TIERA Comment:Testing performed by : [address] [address] Albumin 4.1 3.5 - 5.0 g/dL TIERA Comment:Testing performed by : [address] [address] Alk phos 168(H) 40 - 130 Units/L TIERA Comment:Testing performed by : [address] [address] ALT 298(H) 7 - 55 Units/L TIERA Comment:Testing performed by : [address] [address] AST 159(H) 10 - 50 Units/L [facility]ERA Comment:Testing performed by : [address] [address] Blood 08/06/2025 9:45 PM CDT 08/06/2025 10:05 PM CDT us Jacklyn Tesfaye MD LAB BLOOD ORDERABLES Fin al Result [facility] [address] [facility] [place] [address] from Last 3 Months Insurance [facility] Care Teams Rental Agent Relationship Specialty Start Date End Date Tom Pearl MD PCP - General 02/26/19
--- OUTSIDE RECORDS SUMMARY | 2025-08-10 08:29 | XMS_ITS | Encounter Summary ---
Author Organization 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
--- OUTSIDE RECORDS SUMMARY | 2025-08-10 08:29 | XMS_ITS | Clinical Summary ---
Author Organization 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
--- OUTSIDE RECORDS SUMMARY | 2025-08-10 08:29 | XMS_ITS | Clinical Summary ---
Author Organization [facility] Address [address] [place] [address] Care Team Providers Care Bus Aide Name Role Phone Unavailable Primary Care Provider Unavailabl e Source Comments [facility],non-owned Affiliates and Associated Physician Practices is amultiple site organization consisting of ambulatory clinics and hospital sitesin [place], [place]. This disclosure is being madepursuant to the Care Everywhere program and may not contain all information available regarding this patient. Last updated 18.[facility] Allergies No known active allergies Medications * [...] fracture of distal right femoral mataphysis, seeing [facility] Ortho 01/17/10 Otitis media, acute 10/08/2009 04/07/20 17 Overview (10/14/2009): 10/08/09 Bilateral (Zithromax) Closed head injury 10/08/2009 7 Immunizations Immunization Administration Dates Next Due INFLUENZA VACCINE, TRIV. 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
[2025-08-10 08:32] VITALS: BP 110/62; PULSE 130; RESP 18; TEMP 37.8; O2SAT 96
--- NOTE | 2025-08-10 08:56 | ED.URI ---
HPI - URI/Sore Throat General Chief Complaint: Upper Respiratory Infection Stated Complaint: sore throat Time Seen by Provider: 08/10/25 08:40 Source: patient, family and RN notes reviewed Mode of arrival: ambulatory Limitations: no limitations History of Present Illness HPI Narrative: 19-year-old male patient presents to the [facility] complaining of sore throat, fevers, congestion, nausea last 10 days. Patient was here approximately a week ago and was negative for COVID, flu, strep. Patient was discharged supportive care for for likely viral illness. Patient went to the ER 2 days later [facility] of nausea vomiting, worsening symptoms and appearing jaundice. Patient said he had a full workup and a CT scan of his abdomen, was told he had elevated liver enzymes but not high enough to be admitted, no hepatitis, no mono on testing. The suspected likely viral discharged him home after getting IV fluids. Patient reports the jaundice is improving however he continues to have a sore throat and fevers. Patient reports last few days family keep food and liquids down without vomiting. Patient denies any alcohol use, or abusing Tylenol. Patient was told stop using Tylenol after his ER visit. Patient denies any chest pain, difficulty breathing, abdominal pain, black tarry stools, vomiting blood, neck pain, dysphagia, difficulty clearing secretions, trismus, abnormal bruising, abnormal bleeding, or any other symptoms. Patient denies any recent travel outside the country. Patient immunizations are up-to-date. Patient denies any concerns for STDs. Related Data Home Medications ?Medication ?Instructions ?Recorded ?Confirmed ?Last Taken ?Type methylphenidate HCl 5 mg/mL (25 10 mg PO DAILY 08/18/19 08/10/25 Unknown History mg/5 mL) oral susp,extended release 24 hr (Quillivant XR) estradiol 0.1 mg/24 hr semiweekly 03/04/25 Unknown History transdermal patch spironolactone 50 mg tablet mg 03/04/25 Unknown History Allergies Allergy/AdvReac Type Severity Reaction Status Date / Time No Known Allergies Allergy Verified 08/10/25 08:19 Review of Systems Review of Systems: CONSTITUTIONAL: Positive for fevers. Negative for body exam a chills, or sweats. EYES: Denies visual changes, redness, or discharge. ENT: Denies rhinorrhea, or otalgia. Positive for sore throat congestion. CARDIOVASCULAR: Denies chest pain, palpitations, or edema. RESPIRATORY: Denies cough, difficulty breathing, or dyspnea. GASTROINTESTINAL: Denies abdominal pain, nausea, vomiting, plantar E stools, vomiting blood, or diarrhea. GENITOURINARY: Denies dysuria or hematuria. SKIN: Denies rash or itching. Positive for jaundice MUSCULOSKELETAL: Denies back pain, joint pain, or myalgia. NEUROLOGIC: Denies headache, numbness, or weakness. PSYCHIATRIC: Denies anxiety or depression. All other systems reviewed are negative, except as documented in HPI. PMFSH Comments At the time of my signature, I reviewed and agree with the nursing past medical, surgical, social, and family history. There is no relevant family history pertinent to the patient complaint. Exam Narrative: GENERAL: This is a well-nourished, well-developed adult, in no apparent distress. They are ill-appearing, nontoxic appearing. Patient is jaundiced. HEAD: normocephalic, atraumatic. EYES: Sclera mildly jaundice. Conjunctiva normal. Vision is grossly intact. Extraocular movements intact EARS: External ears normal, auditory canals clear and without drainage, TMs normal without perforation. Hearing grossly intact. NOSE: External nose normal with no obvious nasal discharge, nasal turbinates erythematous, no rhinorrhea. THROAT: Mucous membranes moist, posterior pharynx erythematous. Tonsils 2+, erythematous with exudate. Uvula midline. No trismus. NECK: Neck supple, tender cervical lymphadenopathy, no masses or thyromegaly. CARDIOVASCULAR: Regular rate and rhythm without murmurs, gallops, or rubs. RESPIRATORY: Clear to auscultation. Breath sounds equal bilaterally. No wheezes, rales, or rhonchi. GASTROINTESTINAL: Abdomen soft, non-tender, nondistended. Bowel sounds are active. No hepato-splenomegaly, or palpable masses. No guarding or rigidity. SKIN: warm, Dry, intact with no suspicious lesions or rash, good texture and turgor. NEURO: awake, alert, and oriented to person, place and time. There were no obvious focal neurologic abnormalities. EXTREMITIES: No joint tenderness, effusion, or edema noted. BACK: Nontender without deformity. No CVA tenderness. Course Course Emergency Course: Portions of this record may have been created with voice recognition software Level of Care: Express Care Visit Vital Signs Vital signs: Vital Signs Temperature 100.0 F H 08/10/25 08:32 Pulse Rate 130 H 08/10/25 08:32 Respiratory Rate 18 08/10/25 08:32 Blood Pressure 110/62 08/10/25 08:32 Pulse Oximetry 96 08/10/25 08:32 Oxygen Delivery Room Air 08/10/25 08:32 Temperature 100.0 F H 08/10/25 08:32 Pulse Rate 130 H 08/10/25 08:32 Respiratory Rate 18 08/10/25 08:32 Blood Pressure 110/62 08/10/25 08:32 Pulse Oximetry 96 08/10/25 08:32 Oxygen Delivery Room Air 08/10/25 08:32 Reviewed MDM - URI/Sore Throat MDM Narrative Medical decision making narrative: Patient and mother state jaundice is improving any looks much better than he did 5 days ago. No abnormal bruising, no abnormal bleeding, no black or tarry stools, no abdominal pain. Patient is nontoxic appearing, he is tachycardic and febrile. Otherwise vital signs hemodynamically stable, normal blood pressure. Patient does not meet SIRS criteria even though he is febrile. Given patient's length of symptoms and persistent sore throat will go ahead and treat him with Augmentin. Patient says he has had negative mono test, strep, and hepatitis screenings. Patient denies any recent travel outside the country. Discussed with patient avoid any hepatotoxic compound such as Tylenol and alcohol until he has been re-evaluated. Offered patient ER transfer given is symptoms and he declined since he states he seems to be improving. Patient able to keep food or water down the last few days. Patient has a PCP, advise a very close follow-up in the next 1-3 days for re-evaluation and strict ER precautions if he does not start to improve the next 24-48 hours. Patient and mother verbalized understanding. Discussed physical exam findings. Advised supportive measures and signs/symptoms to go to the ER. Pt is appropriate for outpt treatment and f/u. Differential Diagnosis Differential diagnosis: Likely upper respiratory infection, viral infection, pharyngitis and other ([place], hemolytic disease, biliary obstruction, hepatitis) Critical Care Time Critical Care Time Critical Care Time: No Discharge Plan Discharge Clinical Impression: Pharyngitis Patient Disposition: Home Condition: Stable Instructions: Antibiotic Form, Pharyngitis (ED) Additional Instructions: Take Augmentin as directed. Take it with food to help with nausea and vomiting. Rest and drink plenty of fluids. You may take Motrin for pain or fevers. Follow instructions on the bottle. Follow-up with your PCP in 1-3 days for re-evaluation. If your symptoms worsen or not improving on antibiotics, you become more jaundice, abdominal pain, uncontrollable nausea and vomiting, black tarry stools, vomiting blood, abnormal bruising, abnormal bleeding, increased lethargy, confusion, unresponsiveness, breathing problems, chest pains, continues to have fevers, or any serious concerns please go to the ER immediately. Patient Language: Beninese Prescriptions: New amoxicillin-pot clavulanate 875-125 mg tablet 1 tablet PO Q12H 10 Days Qty: 20 0RF No Action Quillivant XR 5 mg/mL (25 mg/5 mL) Suspension,Ext Rel 24hr,Recon 10 mg PO DAILY estradiol 0.1 mg/24 hr patch semiweekly spironolactone 50 mg tablet ondansetron 4 mg tablet,disintegrating 4 mg PO Q8H PRN (Reason: nausea and vomiting) Qty: 20 0RF Follow-up/Referrals: Lamonte,MD Margarette [Primary Care Provider, Unknown] Stand Alone Forms: Work/School Release IP Time of Disposition: 08:50
== END 2025-08-10 08:55 | disposition home or self-care (01) ==
PROVIDERS: PCP Pediatrics
DX: J02.9 Acute pharyngitis, unspecified (principal); F98.8 Other specified behavioral and emotional disorders with onset usually occurring in childhood and adolescence; Z86.16 Personal history of COVID-19
CPT/HCPCS: 99213; G0463